=== PATIENT | male | born 1990 | race Two or more races ===

== ENCOUNTER 2024-07-07 11:52 | Emergency (ER) | payer OTHER ==
[~2024-07-07] VITALS: Ht 167.6 cm; Wt 59.0 kg
[~2024-07-07 11:52] MED LIST: GENTAMICIN SULFA5 ML OP
[2024-07-07] MEDS ORDERED: CEFTRIAXONE SODIUM 1,000 MG VIAL IM ONE (13:30)
[2024-07-07] MEDS ORDERED: LIDOCAINE HCL 1% 10ML VIAL PERCUT ONE (13:30)
[2024-07-07] MEDS ORDERED: KETOROLAC TROMETHAMINE 60 MG VIAL IM ONE (13:30)
[2024-07-07] MEDS ORDERED: CEPHALEXIN750 MG PO (14:38)
[2024-07-07] MEDS ORDERED: PEPCID AC20 MG PO (14:38)
== END 2024-07-07 14:52 | disposition home or self-care (01) ==
LOC: ER 11:54
DX: S61.412A Laceration without foreign body of left hand, initial encounter (principal); W25.XXXA Contact with sharp glass, initial encounter; Y93.89 Activity, other specified; Y92.89 Other specified places as the place of occurrence of the external cause; Y99.8 Other external cause status